=== PATIENT | female | born 1965 | race Asian ===

== ENCOUNTER 2019-02-24 17:24 | Emergency (ER) | payer OTHER ==
[~2019-02-24] VITALS: Ht 165.1 cm; Wt 65.8 kg
[2019-02-24 17:38] VITALS: Ht 165.1 cm; Wt 65.8 kg
[2019-02-24 19:36] VITALS: BP 112/69
== END 2019-02-24 19:36 | disposition home or self-care (01) ==
LOC: ED 17:24
DX: A08.4 Viral intestinal infection, unspecified (principal); K21.9 Gastro-esophageal reflux disease without esophagitis; I10 Essential (primary) hypertension; E78.00 Pure hypercholesterolemia, unspecified
CPT/HCPCS: 87804; J2765; Q0162

== ENCOUNTER 2020-08-03 11:29 | Inpatient (IN) | payer OTHER ==
[~2020-08-03] VITALS: Ht 162.6 cm; Wt 54.4 kg
[2020-08-03 11:35] VITALS: Ht 162.6 cm; Wt 54.4 kg
[2020-08-03] MEDS ORDERED: MORPHINE S20 MG/1 ML PO (14:08)
[2020-08-03 19:46] VITALS: BP 118/71
[2020-08-04 05:34] VITALS: BP 134/79
[2020-08-04 11:18] VITALS: BP 109/66
== END 2020-08-04 17:05 | disposition left against medical advice (07) | DRG 756 ==
LOC: ED 11:29 → DU 12:08 → MU 12:08 → DU 08-04 05:10
PROVIDERS: ADMIT Internal Medicine; ATTEND Internal Medicine
DX: C56.9 Malignant neoplasm of unspecified ovary (principal); Z66 Do not resuscitate; I10 Essential (primary) hypertension; E78.00 Pure hypercholesterolemia, unspecified; I95.9 Hypotension, unspecified; Z90.710 Acquired absence of both cervix and uterus
CPT/HCPCS: G0378; J2060; J2270; J7042